=== PATIENT | male | born 1985 | race Caucasian/White ===

== ENCOUNTER 2024-04-08 19:11 | Emergency (ER) | payer SELFPAY ==
[2024-04-08 20:04] VITALS: BP 127/68; PULSE 66; TEMP 36.8; O2SAT 97; BMI 29.8
--- NOTE | 2024-04-09 06:18 | ED_ITS ---
HPI HPI - General Adult General Chief complaint: Extremity Injury, Lower Stated complaint: LE INJURY Time Seen by Provider: 04/08/24 19:53 Source: patient Mode of arrival: walk-in Limitations: no limitations History of Present Illness HPI narrative: This 38-year-old male patient presents to the ED stating 4 days ago he was going down the stairs and lost his footing and twisted the left knee in the process. He did not fall. Since then he has had pain around the knee and is now radiating down the back of the calf also. He is able to ambulate. Related Data Home Medications ?Medication ?Instructions ?Recorded ?Confirmed No Known Home Medications 04/08/24 04/08/24 Allergies Allergy/AdvReac Type Severity Reaction Status Date / Time No Known Drug Allergies Allergy Verified 04/08/24 20:02 Opioid HPI Opioid Management Most Recent Opioid Data: No Data to Display Review of Systems ROS Status of ROS 10 or more systems reviewed and unremark able except as noted in history and below PFSH PFSH Social History Little interest or pleasure in doing things: not at all Feeling down, depressed, or hopeless: not at all Exam Narrative Exam Narrative: Patient's vital signs are stable. His legs are examined and there is some puffiness around the left knee but no redness or warmth. On palpation he has a small suprapatellar effusion. There is also some tenderness over the popliteal fossa. Range of motion of the left knee is full and free and there is no instability. He also has some tenderness on palpation of the calf but there is no redness or warmth. Neurovascular function is intact distally and he has a negative Joshi sign. Constitutional Vital Signs, click to edit/add: Last Vital Signs Temp 98.2 F 04/08/24 20:04 Pulse 66 04/08/24 20:04 Resp 14 04/08/24 20:04 BP 127/68 04/08/24 20:04 Pulse Ox 97 04/08/24 20:04 O2 Del Method Room Air 04/08/24 20:04 Course Vital Signs Vital signs: Vital Signs Temperature 98.2 F 04/08/24 20:04 Pulse Rate 66 04/08/24 20:04 Respiratory Rate 14 04/08/24 20:04 Blood Pressure 127/68 04/08/24 20:04 Pulse Oximetry 97 04/08/24 20:04 Oxygen Delivery Method Room Air 04/08/24 20:04 Temperature 98.2 F 04/08/24 20:04 Pulse Rate 66 04/08/24 20:04 Respiratory Rate 14 04/08/24 20:04 Blood Pressure 127/68 04/08/24 20:04 Pulse Oximetry 97 04/08/24 20:04 Oxygen Delivery Method Room Air 04/08/24 20:04 Medical Decision Making MDM Narrative Medical decision making narrative: Patient's presentation is consistent with sprain of the left knee and possibly tear of some muscle fibers in the left calf. He declined any workup stating that he did not have health insurance but is willing to follow-up with his PCP. I have advised him to wear knee-high elastic stocking on the left leg for compression and take ibuprofen for pain. He is always able to return to the ED for follow-up for any problems and is to follow-up with his PCP in the next few days. Discharge Plan Discharge Chief Complaint: Extremity Injury, Lower Clinical Impression: Strain of left calf muscle Strain of left knee Qualifiers: Encounter type: initial encounter Qualified Code(s): S86.912A - Strain of unspecified muscle(s) and tendon(s) at lower leg level, left leg, initial encounter Patient Disposition: Home, Self-Care Time of Disposition Decision: 20:31 Condition: Good Mode of Transportation: Private Vehicle Prescriptions / Home Meds: No Action No Known Home Medications Print Language: Mongolian Instructions: Knee Sprain (ED), Muscle Strain (ED) Additional Instructions: Ibuprofen 400 mg 3 times a day for pain as needed. Wear knee-high elastic stockings on left leg for about a week or so. Follow-up with your physician in 3 to 5 days. Return for worsening symptoms. Referrals: Salomon Villaseñor MD [Physician] - 1 week PhysicianNon-MD Luis [Primary Care Provider] - 1 week Discharge Date/Time: 04/08/24 20:45
== END 2024-04-08 20:45 | disposition home or self-care (01) ==
PROVIDERS: Emergency Provider Emergency Medicine
DX: S86.812A Strain of other muscle(s) and tendon(s) at lower leg level, left leg, initial encounter (principal); X50.1XXA Overexertion from prolonged static or awkward postures, initial encounter
CPT/HCPCS: 99282